=== PATIENT | male | born 1945 | race Caucasian/White ===

== ENCOUNTER 2019-04-16 14:18 | Inpatient (IN) | payer MEDICARE, MEDICAID ==
[~2019-04-16] VITALS: Ht 152.4 cm; Wt 79.2 kg
[2019-04-16] MEDS ORDERED: ONDANSETRON 2MG/ML, 2ML ONE (14:55)
[2019-04-16] MEDS ORDERED: MORPHINE SULFATE 4 MG/ML, 1ML ONE ×2 (14:56→16:46)
[2019-04-16] MEDS ORDERED: SODIUM CHLORIDE 0.9% 1,000ML IVBOLUS ONE (15:00)
[2019-04-16] MEDS ORDERED: ONDANSETRON 2MG/ML, 2ML IVPush ONE (15:00)
[2019-04-16] MEDS ORDERED: SODIUM CHLORIDE FLUSH 10ML SYR IVF ONE (15:00)
[2019-04-16] MEDS: MORPHINE SULFATE 4 MG/ML, 1ML IVPush PRN ×2 (15:13→16:50)
--- NOTE | 2019-04-16 15:14 | NUR ---
PT PLACED ON BP CUFF, PULSE OX. IV PLACED, LABS DRAWN WITH START. NS BOLUS INFUSING. MEDS GIVEN PER ERP ORDER FOR 05/24 ABD PAIN WITH N/V. PT STATES PAIN DECREASED IMMEDIATELY FOLLOWING MEDS. VS UPDATED IN COMPUTER. CALL LIGHT WITHIN REACH, WARM BLANKET PROVIDED. PT UPDATED ON POC, URINAL AT BS.
[2019-04-16] MEDS ORDERED: OXYC-306 PO (15:17)
--- NOTE | 2019-04-16 15:18 | NUR ---
O2 SAT DIPPED TO 85%, OXYGEN PLACED VIA NC AT 3LITERS.
[2019-04-16 15:28] LABS: ALANINE AMINOTRANSFERASE 36 U/L (12-78); ALBUMIN 3.9 g/dL (3.4-5.0); ANION GAP 12 mmol/L (5-15); CALCIUM 9.2 mg/dL (8.5-10.1); CHLORIDE 105 mmol/L (98-107); CREATININE 1.62 mg/dL (0.7-1.3)
[2019-04-16 15:31] LABS: ALKALINE PHOSPHATASE 116 U/L (45-117); TOTAL PROTEIN 8.3 g/dL (6.4-8.2)
[2019-04-16 15:35] LABS: BASOPHILS % (AUTO) 0 % (0-1); EOSINOPHILS % (AUTO) 0 % (1-7); LYMPHOCYTES # (AUTO) 0.43 x10^3/uL (1-3.4); LYMPHOCYTES % (AUTO) 3 % (22-44); MD NO; MEAN CORPUSCULAR HEMOGLOBIN 26.7 pg (27.5-34.5); MEAN CORPUSCULAR HGB CONC 31.9 g/dL (33.2-36.2); MEAN CORPUSCULAR VOLUME 83.9 fL (81-97); MEAN PLATELET VOLUME 7.8 fL (7.4-10.4); MONOCYTES # (AUTO) 0.63 x10^3/uL (0.2-0.8); MONOCYTES % (AUTO) 5 % (2-9); NEUTROPHILS % (AUTO) 92 % (42-75); PLATELET COUNT 354 x10^3/uL (130-400); RED BLOOD COUNT 6.84 x10^6/uL (4.38-5.82); RED CELL DISTRIBUTION WIDTH 15.8 % (9.4-14.8)
--- NOTE | 2019-04-16 16:04 | NUR ---
PT TO CT.
[2019-04-16] MEDS ORDERED: OMNIPAQUE 350 MG/ML, 100ML BOTTLE ONE (16:29)
--- NOTE | 2019-04-16 16:42 | NUR ---
PT UP TO BR WITH URINAL, STATES HE COULDN'T USE URINAL, "PEED IN TOILET INSTEAD". REPEAT VS OBTAINED. PT CONTINUES TO HAVE NO ABD PAIN, NAUSEA RETURNING.
[2019-04-16] MEDS ORDERED: PROMETHAZINE 25 MG/ML, 1ML ONE (16:46)
--- NOTE | 2019-04-16 16:51 | NUR ---
PHENERGAN GIVEN PER ERP ORDER. VS UPDATED IN COMPUTER.
[2019-04-16] MEDS ORDERED: PROMETHAZINE 25 MG/ML, 1ML IM ONE (17:00)
[2019-04-16 18:42] LABS: MICROSCOPIC NOT IND
[2019-04-16 18:51] LABS: CULTURE INDICATED? NO
[2019-04-16] MEDS ORDERED: OXYcodone/APAP 7.5/325MG TABLET PO PRN (19:00)
[2019-04-16] MEDS ORDERED: POLYETHYLENE GLYCOL 17 GM PACKET PO PRN (19:00)
[2019-04-16] MEDS ORDERED: LIDODERM 5% PATCH TD PRN (19:00)
[2019-04-16] MEDS ORDERED: hydrALAzine 20 MG/ML, 1ML IVPush PRN (19:00)
[2019-04-16] MEDS ORDERED: ACETAMINOPHEN 325 MG TABLET PO PRN (19:00)
[2019-04-16] MEDS ORDERED: ZOLPIDEM 5MG TABLET PO PRN (19:00)
[2019-04-16] MEDS ORDERED: BISACODYL 10 MG SUPP PR PRN (19:00)
[2019-04-16 20:02] VITALS: BP 152/73
[2019-04-16] MEDS: SODIUM CHLORIDE 0.9% 1,000 ML IV SCH (20:03)
[2019-04-16] MEDS: HEPARIN 5,000 UNITS/ML, 1ML SQ SCH (20:45)
[2019-04-16] MEDS: INSULIN LISPRO 100 UNITS/ML, PEN SQ-INSULIN SCH (20:48)
[2019-04-16 22:32] VITALS: BP 156/96
[2019-04-17 02:18] VITALS: BP 144/85
[2019-04-17] MEDS: SODIUM CHLORIDE 0.9% 1,000 ML IV SCH (04:24)
[2019-04-17] MEDS: HEPARIN 5,000 UNITS/ML, 1ML SQ SCH (04:24)
[2019-04-17 05:15] LABS: ANION GAP 5 mmol/L (5-15); CALCIUM 7.9 mg/dL (8.5-10.1); CHLORIDE 115 mmol/L (98-107); CREATININE 1.18 mg/dL (0.7-1.3)
[2019-04-17 05:30] LABS: BASOPHILS # (AUTO) 0.03 x10^3/uL (0-0.1); BASOPHILS % (AUTO) 0 % (0-1); EOSINOPHILS # (AUTO) 0.11 x10^3/uL (0-0.4); EOSINOPHILS % (AUTO) 2 % (1-7); LYMPHOCYTES # (AUTO) 1.21 x10^3/uL (1-3.4); LYMPHOCYTES % (AUTO) 16 % (22-44); MD NO; MEAN CORPUSCULAR HEMOGLOBIN 27.5 pg (27.5-34.5); MEAN CORPUSCULAR HGB CONC 32.2 g/dL (33.2-36.2); MEAN CORPUSCULAR VOLUME 85.5 fL (81-97); MEAN PLATELET VOLUME 7.8 fL (7.4-10.4); MONOCYTES # (AUTO) 0.79 x10^3/uL (0.2-0.8); MONOCYTES % (AUTO) 11 % (2-9); NEUTROPHILS # (AUTO) 5.29 x10^3/uL (1.8-6.8); NEUTROPHILS % (AUTO) 71 % (42-75); PLATELET COUNT 310 x10^3/uL (130-400); RED CELL DISTRIBUTION WIDTH 15.5 % (9.4-14.8)
[2019-04-17 06:45] VITALS: BP 140/80
[2019-04-17] MEDS: INSULIN LISPRO 100 UNITS/ML, PEN SQ-INSULIN SCH ×2 (07:00→11:00)
[2019-04-17] MEDS ORDERED: SENNA/DOCUSATE TABLET PO SCH (09:00)
== END 2019-04-17 12:00 | disposition left against medical advice (07) | DRG 391 ==
LOC: ED 17:31 → EDIP 17:45 → 3NE 18:31
PROVIDERS: ADMIT Hospitalist; ATTEND Internal Medicine
DX: K52.9 Noninfective gastroenteritis and colitis, unspecified (principal); N17.0 Acute kidney failure with tubular necrosis; R65.10 Systemic inflammatory response syndrome (SIRS) of non-infectious origin without acute organ dysfunction; M46.1 Sacroiliitis, not elsewhere classified; E86.0 Dehydration; K59.00 Constipation, unspecified; N40.0 Benign prostatic hyperplasia without lower urinary tract symptoms; M25.551 Pain in right hip; G89.29 Other chronic pain; R73.9 Hyperglycemia, unspecified; R11.2 Nausea with vomiting, unspecified
CPT/HCPCS: 36415; 74177; 80048; 80053; 81003; 82962; 83036; 83605; 83690; 85025; 87040; 96361; 96372; 96374; 99285; G0103; G0378; J1644; J2405; J2550; Q9967; J2270; J7030